=== PATIENT | male | born 1970 | race Caucasian/White ===

== ENCOUNTER 2020-11-06 11:07 | Emergency (ER) | payer BC, SELFPAY ==
--- NOTE | ~2020-11-06 | XR_ITS ---
EXAMINATION: XR FINGER, RIGHT CLINICAL INFORMATION: Trauma COMPARISON: None TECHNIQUE: Three views of the right thumb. FINDINGS: There is question of a nondisplaced fracture of the distal tuft of the thumb appreciated on the view of the hand. The joint spaces are normal. There is overlying dressing. There is soft tissue swelling of the thumb. No abnormal air collection or soft tissue foreign body is seen. XR/XR finger RT min 2V IMPRESSION: Question nondisplaced fracture of the distal tuft of the thumb
[2020-11-06 14:28] VITALS: BP 187/120; PULSE 72; RESP 19; TEMP 36.4; O2SAT 97; BMI 30.2
[2020-11-06] MEDS: Diphth,Pertus(ACell),Tet Adult 0.5 ML SYRINGE IM (14:44)
[2020-11-06] MEDS: Lidocaine HCl 1 % MPF 5 ML VIAL SUBCUT ×2 (14:44→15:22)
[2020-11-06] MEDS: cephALEXin 500 MG CAPSULE PO (14:44)
--- NOTE | 2020-11-06 16:02 | ED_ITS ---
HPI - Extremity Problem General Chief complaint: Extremity Injury, Upper <NGOZI Farooq - Last Filed: 11/10/20 11:14> Time Seen by Provider: 11/06/20 14:36 <NGOZI Farooq - Last Filed: 11/10/20 11:14> History of Present Illness HPI Narrative: Patient complains of right thumb injury when he cut it on a power tool at work, no numbness no weakness no tingling no other injury <NGOZI Farooq Last Filed: 11/10/20 11:14> Related Data Home medications: Home Medications Medication Instructions Recorded Confirmed betamethasone, augmented 0.05 % appl TOPICAL BID 11/06/20 topical cream Previous Rx's Medication Instructions Recorded cephalexin 500 mg PO QID 5 Days #20 tab 11/06/20 ibuprofen 600 mg PO Q6H PRN #20 tab 11/06/20 oxycodone-acetaminophen [Percocet] 1 tab PO Q4-6H PRN #14 tab 11/06/20 <NGOZI Farooq - Last Filed: 11/10/20 11:14> Allergies/Adverse reactions: Allergies Allergy/AdvReac Type Severity Reaction Status Date / Time No Known Allergies Allergy Verified 11/09/20 16:38 <NGOZI Farooq - Last Filed: 11/10/20 11:14> Review of Systems Review of Systems: Right thumb laceration and pain Negatives are no dizziness no weakness no numbness weakness or tingling, no other finger or extremity pain or injury <NGOZI Farooq - Last Filed: 11/10/20 11:14> Yes all other systems are reviewed and are negative <NGOZI Farooq - Last Filed: 11/10/20 11:14> [facility] Past Medical History Source: nursing notes reviewed <NGOZI Farooq - Last Filed: 11/10/20 11:14> Medical History: Medical History (Updated 11/11/20 @ 13:46 by Shagufta Tijerina NP) No known health problems <NGOZI Farooq Last Filed: 11/10/20 11:14> Physical Exam Vital Signs: Vital Signs: Last Vital Signs Temp 97.6 F 11/06/20 14:28 Pulse 72 11/06/20 14:28 Resp 19 11/06/20 14:28 BP 187/120 H 11/06/20 14:28 Pulse Ox 97 11/06/20 14:28 Body Mass Index 30.2 <NGOZI Farooq - Last Filed: 11/10/20 11:14> Vital Signs: Last Vital Signs Temp 97.6 F 11/06/20 14:28 Pulse 72 11/06/20 14:28 Resp 19 11/06/20 14:28 BP 187/120 H 11/06/20 14:28 Pulse Ox 97 11/06/20 14:28 Body Mass Index 30.2 <Vinnie Jimenez MD - Last Filed: 11/21/20 08:07> General appearance no acute distress, common cooperative Neck is supple Respiratory no distress Right thumb distal phalanx has a partial amputation of the tuft partially through the nail it is about 1.5 cm long and there is a subungual hematoma at the base of the fingernail, motor and sensation in all tendon function are intact Other extremities are normal Neuro no focal motor or sensory deficits <NGOZI Farooq - Last Filed: 11/10/20 11:14> Course Course Course Narrative: X-ray showed a possible nondisplaced distal tuft fracture Laceration repair note for right thumb The area was cleansed with Betadine Digital block of 6 cc of 1% lidocaine is done with good anesthesia The proximal portion of the nail had a subungual hematoma and several holes are made with an 18 gauge needle to release some of the blood The laceration is through the distal tuft including through the nail so I removed half of the distal section of the nail Using 5 0 Vicryl Rapide absorbable suture 5 sutures were replaced to repair the partially severed tuft A sterile dressing and a splint were applied Antibiotic was started for open fracture of the distal phalanx of the right thumb and tetanus immunization was provided Patient will follow with were connection and return for any sign of infection <NGOZI Farooq - Last Filed: 11/10/20 11:14> I have reviewed the chart <Vinnie Jimenez MD - Last Filed: 11/21/20 08:07> Discharge Plan Discharge Clinical Impression: Laceration, Open fracture of right thumb <NGOZI Farooq - Last Filed: 11/10/20 11:14> Patient Disposition: Home, Self-Care <NGOZI Farooq - Last Filed: 11/10/20 11:14> Additional Instructions: Follow with work connection in 2-3 days for recheck, or if they are unavailable return to the ER in 2-3 days for recheck Return any time for redness, increased pain and swelling, discharge from wound, any sign of infection or any concerns X-ray showed a possible crack in the bone so we are starting antibiotics to make sure no germs penetrate into the bone so you will be using Keflex antibiotic You got a tetanus shot <NGOZI Farooq - Last Filed: 11/10/20 11:14> Prescriptions: New cephalexin 500 mg tablet 500 mg PO QID 5 Days Qty: 20 RF: 0 oxycodone-acetaminophen [Percocet] 5-325 mg tablet 1 tab PO Q4-6H PRN (Reason: pain) Qty: 14 RF: 0 ibuprofen 600 mg tablet 600 mg PO Q6H PRN (Reason: pain) Qty: 20 RF: 0 No Action betamethasone, augmented 0.05 % cream topical BID RF: 0 <NGOZI Farooq - Last Filed: 11/10/20 11:14> Referrals: [facility] [Provider Group] - 2 days (Wound check for work related open fracture of right thumb) <NGOZI Farooq - Last Filed: 11/10/20 11:14> Stand Alone Forms: Work/School Release <NGOZI Farooq - Last Filed: 11/10/20 11:14> Interventions: ED Discharge Assessment Last Done: 11/06/20 16:12 <NGOZI Farooq Last Filed: 11/10/20 11:14> Discharge Date/Time: 11/06/20 16:14 <NGOZI Farooq - Last Filed: 11/10/20 11:14>
[2020-11-06] MEDS: Ibuprofen 600 MG TABLET PO (16:08)
== END 2020-11-06 16:14 | disposition home or self-care (01) ==
LOC: HO.ED 11:08
PROVIDERS: Emergency Provider Emergency Medicine; PCP Internal Medicine; Visit Provider Nurse Practitioner Family
DX: S68.021A Partial traumatic metacarpophalangeal amputation of right thumb, initial encounter (principal); S62.524B Nondisplaced fracture of distal phalanx of right thumb, initial encounter for open fracture; W31.89XA Contact with other specified machinery, initial encounter; M79.644 Pain in right finger(s); Y93.E9 Activity, other interior property and clothing maintenance; Y92.63 Factory as the place of occurrence of the external cause; Y99.0 Civilian activity done for income or pay
CPT/HCPCS: 11740; 12041; 73140; 90471; 90715; 99283; 99284

== ENCOUNTER 2022-12-26 15:00 | Outpatient (RCR) | payer OTHER, SELFPAY | END 2022-12-30 15:22 | disposition home or self-care (01) | LOC: HO.OT 15:00 | PROVIDERS: Visit Provider Physician Assistant | DX: S62.001D Unspecified fracture of navicular [scaphoid] bone of right wrist, subsequent encounter for fracture with routine healing (principal); Z98.890 Other specified postprocedural states | CPT/HCPCS: 97033; 97110; 97140; 97166 ==

== ENCOUNTER 2023-04-20 10:00 | Outpatient (RCR) | payer OTHER, SELFPAY | END 2023-05-20 10:29 | disposition home or self-care (01) | LOC: HO.OT 10:00 | PROVIDERS: PCP Internal Medicine; Visit Provider Physician Assistant | DX: M25.532 Pain in left wrist (principal) | CPT/HCPCS: 97035; 97110; 97166 ==

== ENCOUNTER 2024-01-26 08:30 | Outpatient (RCR) | payer OTHER, SELFPAY | END 2024-01-26 09:18 | disposition home or self-care (01) | LOC: HO.OT 08:30 | PROVIDERS: PCP Internal Medicine; Visit Provider Orthopaedic Surgery | DX: Z98.890 Other specified postprocedural states (principal) | CPT/HCPCS: 97110; 97166 ==